=== PATIENT | female | born 1945 | race Caucasian/White ===

== ENCOUNTER 2017-11-16 08:33 | Inpatient (IN) | payer MEDICARE, MEDICAID ==
[~2017-11-16] VITALS: Ht 157.5 cm; Wt 67.4 kg
[2017-11-16] MEDS ORDERED: SODIUM CHLORIDE 0.9% 1,000ML IVBOLUS ONE (09:00)
[2017-11-16] MEDS ORDERED: ONDANSETRON 2MG/ML, 2ML IVPush ONE (09:00)
[2017-11-16] MEDS ORDERED: ONDANSETRON 2MG/ML, 2ML ONE (09:09)
[2017-11-16 09:14] LABS: PH, VENOUS 7.361 pH (7.320-7.420)
[2017-11-16 09:19] LABS: MEAN CORPUSCULAR HEMOGLOBIN 30.6 pg (27.0-34.8); MEAN CORPUSCULAR HGB CONC 34.3 g/dL (32.4-35.8); MEAN CORPUSCULAR VOLUME 89.2 fL (80-100); MEAN PLATELET VOLUME 7.5 fL (7.4-10.4); O2 FLOW ROOM AIR L/min; PLATELET COUNT 327 x10^3/uL (130-400); RED BLOOD COUNT 4.46 x10^6/uL (3.82-5.3); RED CELL DISTRIBUTION WIDTH 13.2 % (9.6-15.2)
[2017-11-16 09:29] LABS: ALANINE AMINOTRANSFERASE 25 U/L (12-78); ALBUMIN 3.3 g/dL (3.4-5.0); ANION GAP 11 mmol/L (5-15); CALCIUM 8.5 mg/dL (8.5-10.1); CHLORIDE 102 mmol/L (98-107); CREATININE 1.34 mg/dL (0.55-1.02)
[2017-11-16] MEDS ORDERED: PIPERACILLIN/TAZO/PMX 4.5GM 100 ML IV ONE (09:30)
[2017-11-16 09:31] LABS: ALKALINE PHOSPHATASE 104 U/L (45-117); BILIRUBIN,TOTAL 0.6 mg/dL (0.2-1.0); TOTAL PROTEIN 7.8 g/dL (6.4-8.2)
[2017-11-16 09:34] LABS: TROPONIN I < 0.015 ng/mL (0.000-0.045)
[2017-11-16 09:45] LABS: ACETONE, SERUM Negative (Negative)
[2017-11-16] MEDS ORDERED: NIAC500C3 PO (09:47)
[2017-11-16] MEDS ORDERED: SIMV40TA3 PO (09:47)
[2017-11-16] MEDS ORDERED: LINA5TAB PO (09:47)
[2017-11-16] MEDS ORDERED: METF500T4 PO (09:47)
[2017-11-16] MEDS ORDERED: METO50TA82 PO (09:47)
[2017-11-16] MEDS ORDERED: LORA10TA62 PO (09:47)
[2017-11-16 09:48] LABS: MD YES
[2017-11-16 09:53] LABS: <RBC MORPHOLOGY> NORMAL; BANDS%(MANUAL) 8 % (0-7); LYMPH#(MANUAL) 1.58 x10^3/uL (1-3.4); LYMPHS% (MANUAL) 6 % (22-44); MONOS#(MANUAL) 1.84 x10^3/uL (0.3-2.7); MONOS% (MANUAL) 7 % (2-9); SEG#(MANUAL) 20.78 x10^3/uL (1.8-6.8); SEGS% (MANUAL) 79 % (42-75)
[2017-11-16 09:54] LABS: <PLATELET ESTIMATE> ADEQUATE; <PLT MORPHOLOGY> NORMAL PLT MORPH
[2017-11-16 10:03] LABS: MICROSCOPIC NOT IND
[2017-11-16 10:36] LABS: CULTURE INDICATED? NO
[2017-11-16 12:26] LABS: TROPONIN I < 0.015 ng/mL (0.000-0.045)
[2017-11-16] MEDS ORDERED: DEXTROSE 4 GM TAB.CHEW PO PRN (12:30)
[2017-11-16] MEDS ORDERED: LABETALOL 5MG/ML, 20ML IVPush PRN (12:30)
[2017-11-16] MEDS ORDERED: morphine SULFATE 10 MG/ML, 1ML IVPush PRN (12:30)
[2017-11-16] MEDS ORDERED: ACETAMINOPHEN 325 MG TABLET PO PRN (12:30)
[2017-11-16] MEDS ORDERED: POLYETHYLENE GLYCOL 17 GM PACKET PO PRN (12:30)
[2017-11-16] MEDS ORDERED: TEMAZEPAM 15 MG CAPSULE PO PRN (12:30)
[2017-11-16] MEDS ORDERED: ONDANSETRON 2MG/ML, 2ML IVPush PRN (12:30)
[2017-11-16] MEDS ORDERED: DEXTROSE 50%, 50ML SYRINGE IVPush PRN (12:30)
[2017-11-16] MEDS ORDERED: GLUCAGON 1 MG IM PRN (12:30)
[2017-11-16] MEDS: INSULIN LISPRO 100 UNITS/ML, PEN SQ-INSULIN SCH ×3 (12:30→20:58)
[2017-11-16] MEDS ORDERED: ONDANSETRON ODT 4 MG PO PRN (12:30)
[2017-11-16] MEDS ORDERED: MAGNESIUM SULFATE PMX 4GM/100M 100 ML IV ONE (13:00)
[2017-11-16 13:04] LABS: HEMOGLOBIN A1C 7.6 % (4.2-6.3)
[2017-11-16 13:55] VITALS: BP 161/65
[2017-11-16] MEDS: METOPROLOL TARTRATE 50 MG TABLET PO SCH (14:51)
[2017-11-16] MEDS: NEUTRA PHOS K 250 MG TABLET PO SCH ×3 (14:51→20:57)
[2017-11-16] MEDS: NS + 20MEQ KCL 1,000 ML IV SCH (14:57)
[2017-11-16] MEDS ORDERED: PIPERACILLIN/TAZO/PMX 3.375GM 50 ML IV SCH (16:00)
[2017-11-16] MEDS: HEPARIN 5,000 UNITS/ML, 1ML SQ SCH ×2 (16:00→20:58)
[2017-11-16] MEDS ORDERED: PIPERACILLIN/TAZO/PMX 4.5GM 100 ML IV SCH (16:00)
[2017-11-16 16:16] LABS: RAPID INFLUENZA A Negative (Negative); RAPID INFLUENZA B Negative (Negative)
[2017-11-16 18:16] LABS: TROPONIN I < 0.015 ng/mL (0.000-0.045)
[2017-11-16 20:00] VITALS: BP 110/61
[2017-11-16] MEDS: MAGNESIUM OXIDE 400 MG TABLET PO SCH (20:57)
[2017-11-16] MEDS: SIMVASTATIN 40 MG TABLET PO SCH (20:57)
[2017-11-16] MEDS: PIPERACILLIN/TAZO 3.375 GM in DEXTROSE 5% 50 ML IV SCH (20:58)
[2017-11-16] MEDS: SODIUM CHLORIDE FLUSH 10ML SYR IVF SCH (20:59)
[2017-11-16] MEDS: GUAIFENESIN/DM 200-20MG, 10ML UDC PO PRN (21:24)
[2017-11-16 23:50] LABS: TROPONIN I < 0.015 ng/mL (0.000-0.045)
[2017-11-17 00:11] VITALS: BP 144/62
[2017-11-17] MEDS: NS + 20MEQ KCL 1,000 ML IV SCH (01:48)
[2017-11-17] MEDS: PIPERACILLIN/TAZO 3.375 GM in DEXTROSE 5% 50 ML IV SCH ×4 (04:03→21:33)
[2017-11-17] MEDS: HEPARIN 5,000 UNITS/ML, 1ML SQ SCH ×3 (05:35→21:25)
[2017-11-17 05:55] LABS: ALANINE AMINOTRANSFERASE 18 U/L (12-78); ALBUMIN 2.6 g/dL (3.4-5.0); ANION GAP 7 mmol/L (5-15); CALCIUM 7.5 mg/dL (8.5-10.1); CHLORIDE 109 mmol/L (98-107); CREATININE 1.21 mg/dL (0.55-1.02)
[2017-11-17 05:58] LABS: ALKALINE PHOSPHATASE 84 U/L (45-117); BILIRUBIN,TOTAL 0.9 mg/dL (0.2-1.0); MEAN CORPUSCULAR HGB CONC 34.7 g/dL (32.4-35.8); MEAN CORPUSCULAR VOLUME 89.4 fL (80-100); MEAN PLATELET VOLUME 7.9 fL (7.4-10.4); PLATELET COUNT 289 x10^3/uL (130-400); RED BLOOD COUNT 3.79 x10^6/uL (3.82-5.3); RED CELL DISTRIBUTION WIDTH 12.7 % (9.6-15.2); TOTAL PROTEIN 6.9 g/dL (6.4-8.2)
[2017-11-17 06:27] LABS: MD YES
[2017-11-17 06:29] LABS: BAND#(MANUAL) 2.28 x10^3/uL; BANDS%(MANUAL) 7 % (0-7); LYMPH#(MANUAL) 3.58 x10^3/uL (1-3.4); LYMPHS% (MANUAL) 11 % (22-44); MONOS#(MANUAL) 2.28 x10^3/uL (0.3-2.7); MONOS% (MANUAL) 7 % (2-9); SEG#(MANUAL) 24.38 x10^3/uL (1.8-6.8); SEGS% (MANUAL) 75 % (42-75)
[2017-11-17 06:30] LABS: POLYCHROMASIA 1+
[2017-11-17 06:31] LABS: <PLATELET ESTIMATE> ADEQUATE; <PLT MORPHOLOGY> NORMAL PLT MORPH
[2017-11-17 07:00] VITALS: BP 115/70
[2017-11-17] MEDS: MAGNESIUM OXIDE 400 MG TABLET PO SCH ×2 (08:36→21:25)
[2017-11-17] MEDS: METOPROLOL TARTRATE 50 MG TABLET PO SCH (08:36)
[2017-11-17] MEDS: INSULIN LISPRO 100 UNITS/ML, PEN SQ-INSULIN SCH ×4 (08:36→21:32)
[2017-11-17] MEDS: NEUTRA PHOS K 250 MG TABLET PO SCH ×3 (08:36→21:25)
[2017-11-17] MEDS: SODIUM CHLORIDE FLUSH 10ML SYR IVF SCH ×2 (08:48→21:24)
[2017-11-17] MEDS: GUAIFENESIN/DM 200-20MG, 10ML UDC PO PRN ×3 (11:08→21:31)
[2017-11-17 13:20] VITALS: BP 112/69
[2017-11-17 20:15] VITALS: BP 128/69
[2017-11-17] MEDS: SIMVASTATIN 40 MG TABLET PO SCH (21:25)
[2017-11-18 02:56] VITALS: BP 126/71
[2017-11-18] MEDS: GUAIFENESIN/DM 200-20MG, 10ML UDC PO PRN (03:37)
[2017-11-18] MEDS: PIPERACILLIN/TAZO 3.375 GM in DEXTROSE 5% 50 ML IV SCH ×2 (03:46→08:56)
[2017-11-18 05:48] LABS: CHLORIDE 108 mmol/L (98-107)
[2017-11-18 05:55] LABS: MEAN CORPUSCULAR HEMOGLOBIN 30.6 pg (27.0-34.8); MEAN CORPUSCULAR VOLUME 90.2 fL (80-100); MEAN PLATELET VOLUME 7.9 fL (7.4-10.4); PLATELET COUNT 254 x10^3/uL (130-400); RED BLOOD COUNT 3.62 x10^6/uL (3.82-5.3); RED CELL DISTRIBUTION WIDTH 13.1 % (9.6-15.2)
[2017-11-18 06:01] LABS: ALANINE AMINOTRANSFERASE 17 U/L (12-78); ALBUMIN 2.2 g/dL (3.4-5.0); ALKALINE PHOSPHATASE 90 U/L (45-117); ANION GAP 8 mmol/L (5-15); CALCIUM 7.3 mg/dL (8.5-10.1); CREATININE 1.06 mg/dL (0.55-1.02); TOTAL PROTEIN 6.8 g/dL (6.4-8.2)
[2017-11-18] MEDS: HEPARIN 5,000 UNITS/ML, 1ML SQ SCH (06:16)
[2017-11-18 06:29] LABS: BASOPHILS # (AUTO) 0.04 x10^3/uL (0-0.1); BASOPHILS % (AUTO) 0 % (0-1); EOSINOPHILS % (AUTO) 0 % (1-7); LYMPHOCYTES # (AUTO) 2.59 x10^3/uL (1-3.4); LYMPHOCYTES % (AUTO) 12 % (22-44); MD SCAN; MONOCYTES # (AUTO) 1.85 x10^3/uL (0.2-0.8); MONOCYTES % (AUTO) 8 % (2-9); NEUTROPHILS # (AUTO) 17.95 x10^3/uL (1.8-6.8); NEUTROPHILS % (AUTO) 80 % (42-75)
[2017-11-18 08:00] VITALS: BP 164/78
[2017-11-18] MEDS: SODIUM CHLORIDE FLUSH 10ML SYR IVF SCH (08:56)
[2017-11-18] MEDS: NEUTRA PHOS K 250 MG TABLET PO SCH (08:56)
[2017-11-18] MEDS: METOPROLOL TARTRATE 50 MG TABLET PO SCH (08:56)
[2017-11-18] MEDS: MAGNESIUM OXIDE 400 MG TABLET PO SCH (08:56)
[2017-11-18] MEDS: INSULIN LISPRO 100 UNITS/ML, PEN SQ-INSULIN SCH ×2 (09:05→13:04)
[2017-11-18] MEDS ORDERED: BENZ100C PO (09:10)
[2017-11-18] MEDS ORDERED: AZIT250T PO (09:10)
[2017-11-18] MEDS ORDERED: GUAI5SYR PO (09:10)
[2017-11-18] MEDS ORDERED: CEFD300C37 PO (09:10)
== END 2017-11-18 15:55 | disposition home health service (06) | DRG 871 ==
LOC: ED 09:14 → EDIP 10:56 → 4WST 13:00
PROVIDERS: ADMIT Internal Medicine; ATTEND Internal Medicine
PROC: 0T9B70Z Drainage of Bladder with Drainage Device, Via Natural or Artificial Opening (ICD-10-PCS; principal; 2017-11-16)
DX: A41.9 Sepsis, unspecified organism (principal); J18.1 Lobar pneumonia, unspecified organism; E43 Unspecified severe protein-calorie malnutrition; E87.2 Acidosis; E11.65 Type 2 diabetes mellitus with hyperglycemia; R65.20 Severe sepsis without septic shock; E86.0 Dehydration; E78.5 Hyperlipidemia, unspecified; E83.39 Other disorders of phosphorus metabolism; E83.42 Hypomagnesemia; I10 Essential (primary) hypertension; N28.9 Disorder of kidney and ureter, unspecified; Z87.891 Personal history of nicotine dependence
CPT/HCPCS: 36415; 71045; 71250; 80053; 81003; 82010; 82550; 82803; 82962; 83036; 83605; 83690; 83735; 83930; 84100; 84145; 84484; 85025; 87040; 87400; 93005; 93306; 94640; 96365; 96375; J1644; J2405; J2543; J3480; J1815; J3475; J7030

== ENCOUNTER 2017-11-23 23:00 | Inpatient (IN) | payer MEDICARE, MEDICAID ==
[~2017-11-23] VITALS: Ht 157.5 cm; Wt 66.5 kg
[~2017-11-23 23:00] MED LIST: AZIT250T PO; BENZ100C PO; CEFD300C37 PO; GUAI5SYR PO; LINA5TAB PO; LORA10TA62 PO; METF500T4 PO; METO50TA82 PO; NIAC500C3 PO; SIMV40TA3 PO
[2017-11-23] MEDS ORDERED: ASPIRIN 81 MG TABLET CHEW PO ONE (23:30)
[2017-11-23 23:52] LABS: ALANINE AMINOTRANSFERASE 32 U/L (12-78); ALBUMIN 2.4 g/dL (3.4-5.0); ANION GAP 10 mmol/L (5-15); CALCIUM 8.3 mg/dL (8.5-10.1); CHLORIDE 106 mmol/L (98-107); CREATININE 0.95 mg/dL (0.55-1.02)
[2017-11-23 23:56] LABS: ALKALINE PHOSPHATASE 111 U/L (45-117); BILIRUBIN,TOTAL 0.2 mg/dL (0.2-1.0); TOTAL PROTEIN 8.2 g/dL (6.4-8.2); TROPONIN I < 0.015 ng/mL (0.000-0.045)
[2017-11-23 23:59] LABS: BASOPHILS # (AUTO) 0.03 x10^3/uL (0-0.1); BASOPHILS % (AUTO) 0 % (0-1); EOSINOPHILS % (AUTO) 3 % (1-7); LYMPHOCYTES # (AUTO) 2.39 x10^3/uL (1-3.4); LYMPHOCYTES % (AUTO) 18 % (22-44); MD NO; MEAN CORPUSCULAR HEMOGLOBIN 30.3 pg (27.0-34.8); MEAN CORPUSCULAR HGB CONC 34.3 g/dL (32.4-35.8); MEAN CORPUSCULAR VOLUME 88.4 fL (80-100); MEAN PLATELET VOLUME 7.5 fL (7.4-10.4); MONOCYTES # (AUTO) 1.34 x10^3/uL (0.2-0.8); MONOCYTES % (AUTO) 10 % (2-9); NEUTROPHILS # (AUTO) 9.52 x10^3/uL (1.8-6.8); NEUTROPHILS % (AUTO) 70 % (42-75); PLATELET COUNT 477 x10^3/uL (130-400); RED BLOOD COUNT 4.03 x10^6/uL (3.82-5.3); RED CELL DISTRIBUTION WIDTH 12.9 % (9.6-15.2)
[2017-11-24] VITALS (8 sets, daily range): BP systolic 129–161; BP diastolic 59–73
[2017-11-24] MEDS ORDERED: ASPIRIN 81 MG TABLET CHEW ONE (00:01)
[2017-11-24 00:05] LABS: INTERNATIONAL NORMALIZED RATIO 0.99 (0.93-1.1); PROTHROMBIN TIME 10.3 Seconds (9.6-11.5)
[2017-11-24] MEDS ORDERED: ONDANSETRON 2MG/ML, 2ML IVPush PRN (01:30)
[2017-11-24] MEDS ORDERED: ONDANSETRON ODT 4 MG PO PRN (01:30)
[2017-11-24] MEDS ORDERED: ACETAMINOPHEN 325 MG TABLET PO PRN (01:30)
[2017-11-24] MEDS ORDERED: DEXTROSE 4 GM TAB.CHEW PO PRN (01:30)
[2017-11-24] MEDS ORDERED: DEXTROSE 50%, 50ML SYRINGE IVPush PRN (01:30)
[2017-11-24] MEDS ORDERED: MECLIZINE 12.5 MG TABLET PO PRN (01:30)
[2017-11-24] MEDS ORDERED: GLUCAGON 1 MG IM PRN (01:30)
[2017-11-24] MEDS ORDERED: GUAIFENESIN/DM 100-10MG, 5ML UDC PO PRN (01:30)
[2017-11-24] MEDS: INSULIN LISPRO 100 UNITS/ML, PEN SQ-INSULIN SCH ×4 (07:00→20:47)
[2017-11-24 09:20] LABS: CLOSTRIDIUM DIFFICILE ANTIGEN NEGATIVE; CLOSTRIDIUM DIFFICILE TOXIN NEGATIVE (Negative)
[2017-11-24] MEDS: CEFDINIR 300 MG CAPSULE PO SCH ×2 (09:32→20:46)
[2017-11-24] MEDS: AZITHROMYCIN 250 MG TABLET PO SCH (09:32)
[2017-11-24] MEDS: CHOLESTYRAMINE LIGHT 4GM PACKET PO SCH ×3 (09:32→17:00)
[2017-11-24] MEDS: METOPROLOL TARTRATE 50 MG TABLET PO SCH (09:32)
[2017-11-24] MEDS: BENZONATATE 100 MG CAPSULE PO SCH ×3 (09:32→20:47)
[2017-11-24] MEDS: SODIUM CHLORIDE FLUSH 10ML SYR IVF SCH ×2 (09:33→20:48)
[2017-11-24] MEDS: SIMVASTATIN 40 MG TABLET PO SCH (20:46)
[2017-11-25] VITALS (7 sets, daily range): BP systolic 126–155; BP diastolic 66–82
[2017-11-25] MEDS: INSULIN LISPRO 100 UNITS/ML, PEN SQ-INSULIN SCH ×4 (07:00→20:19)
[2017-11-25] MEDS: CHOLESTYRAMINE LIGHT 4GM PACKET PO SCH ×3 (08:00→17:13)
[2017-11-25 08:44] LABS: TROPONIN I < 0.015 ng/mL (0.000-0.045)
[2017-11-25] MEDS: BENZONATATE 100 MG CAPSULE PO SCH ×3 (09:00→20:19)
[2017-11-25] MEDS: CEFDINIR 300 MG CAPSULE PO SCH ×2 (09:00→20:19)
[2017-11-25] MEDS ORDERED: REGADENOSON 0.4 MG/5 ML SYRINGE ONE (10:20)
[2017-11-25] MEDS: SODIUM CHLORIDE FLUSH 10ML SYR IVF SCH ×2 (13:05→20:19)
[2017-11-25] MEDS: AZITHROMYCIN 250 MG TABLET PO SCH (13:05)
[2017-11-25] MEDS: METOPROLOL TARTRATE 50 MG TABLET PO SCH (13:05)
[2017-11-25] MEDS: SIMVASTATIN 40 MG TABLET PO SCH (20:19)
[2017-11-26 01:01] VITALS: BP 121/70
[2017-11-26] MEDS: INSULIN LISPRO 100 UNITS/ML, PEN SQ-INSULIN SCH ×2 (07:00→11:00)
[2017-11-26] MEDS: CHOLESTYRAMINE LIGHT 4GM PACKET PO SCH ×2 (07:32→11:05)
[2017-11-26 08:29] VITALS: BP 145/52
[2017-11-26] MEDS: METOPROLOL TARTRATE 50 MG TABLET PO SCH (09:08)
[2017-11-26] MEDS: AZITHROMYCIN 250 MG TABLET PO SCH (09:08)
[2017-11-26] MEDS: CEFDINIR 300 MG CAPSULE PO SCH (09:09)
[2017-11-26] MEDS: SODIUM CHLORIDE FLUSH 10ML SYR IVF SCH (09:09)
[2017-11-26] MEDS: BENZONATATE 100 MG CAPSULE PO SCH (09:09)
== END 2017-11-26 13:08 | disposition home or self-care (01) | DRG 393 ==
LOC: ED 11-24 00:51 → EDIP 11-24 01:39 → 4EST 11-24 02:35 → DCLOUNGE 11-26 12:55
PROVIDERS: ADMIT Internal Medicine; ATTEND Internal Medicine
DX: K52.1 Toxic gastroenteritis and colitis (principal); J18.1 Lobar pneumonia, unspecified organism; E11.9 Type 2 diabetes mellitus without complications; I10 Essential (primary) hypertension; E78.5 Hyperlipidemia, unspecified; F41.0 Panic disorder [episodic paroxysmal anxiety]; Z87.01 Personal history of pneumonia (recurrent); Z82.5 Family history of asthma and other chronic lower respiratory diseases; Z83.3 Family history of diabetes mellitus; Z82.49 Family history of ischemic heart disease and other diseases of the circulatory system; T36.95XA Adverse effect of unspecified systemic antibiotic, initial encounter; Y92.89 Other specified places as the place of occurrence of the external cause
CPT/HCPCS: 36415; 70450; 71045; 78452; 80053; 82962; 83735; 84100; 84484; 85025; 85610; 85730; 87324; 93005; 93017; 93880; 99285; J2785; 92523-GN; A9502; C9898; J1815

== ENCOUNTER 2018-05-08 10:04 | Emergency (ER) | payer MEDICARE, MEDICAID ==
[~2018-05-08] VITALS: Ht 157.5 cm; Wt 68.0 kg
[~2018-05-08 10:04] MED LIST changes: +CALCIUM TABLET PO; +CHOL100015 PO; +METF500T17 PO; -METF500T4 PO; +MULT-717 PO
[2018-05-08] MEDS ORDERED: SODIUM CHLORIDE 0.9% 1,000ML IVBOLUS ONE (10:30)
[2018-05-08 10:33] LABS: BASOPHILS # (AUTO) 0.02 x10^3/uL (0-0.1); BASOPHILS % (AUTO) 0 % (0-1); EOSINOPHILS # (AUTO) 0.38 x10^3/uL (0-0.4); EOSINOPHILS % (AUTO) 4 % (1-7); LYMPHOCYTES % (AUTO) 30 % (22-44); MD NO; MEAN CORPUSCULAR HEMOGLOBIN 29.7 pg (27.0-34.8); MEAN CORPUSCULAR HGB CONC 34.4 g/dL (32.4-35.8); MEAN CORPUSCULAR VOLUME 86.3 fL (80-100); MEAN PLATELET VOLUME 7.9 fL (7.4-10.4); MONOCYTES # (AUTO) 1.01 x10^3/uL (0.2-0.8); MONOCYTES % (AUTO) 10 % (2-9); NEUTROPHILS # (AUTO) 5.84 x10^3/uL (1.8-6.8); NEUTROPHILS % (AUTO) 56 % (42-75); PLATELET COUNT 311 x10^3/uL (130-400); RED BLOOD COUNT 4.73 x10^6/uL (3.82-5.3)
[2018-05-08 10:42] LABS: ALBUMIN 3.5 g/dL (3.4-5.0); ANION GAP 6 mmol/L (5-15); CALCIUM 8.8 mg/dL (8.5-10.1); CHLORIDE 108 mmol/L (98-107); CREATININE 1.32 mg/dL (0.55-1.02)
[2018-05-08 10:45] LABS: TROPONIN I < 0.015 ng/mL (0.000-0.045)
[2018-05-08 11:06] LABS: MICROSCOPIC INDICATED
[2018-05-08 11:08] LABS: CULTURE INDICATED? YES
[2018-05-08 12:42] LABS: CLOSTRIDIUM DIFFICILE ANTIGEN NEGATIVE; CLOSTRIDIUM DIFFICILE TOXIN NEGATIVE (Negative)
[2018-05-08 13:01] VITALS: BP 128/52
== END 2018-05-08 13:38 | disposition home or self-care (01) ==
LOC: ED 10:58
DX: R42 Dizziness and giddiness (principal); R19.7 Diarrhea, unspecified; E86.0 Dehydration; E11.9 Type 2 diabetes mellitus without complications; I95.1 Orthostatic hypotension
CPT/HCPCS: 36415; 71045; 80048; 81001; 82040; 84484; 85025; 87086; 87106; 87186; 87324; 89055; 93005; 96360; 99285; J7030

== ENCOUNTER 2019-04-13 10:21 | Emergency (ER) | payer MEDICARE, MEDICAID ==
[~2019-04-13] VITALS: Ht 157.5 cm; Wt 68.0 kg
[2019-04-13 10:35] VITALS: BP 154/48
== END 2019-04-13 12:19 | disposition home or self-care (01) ==
LOC: ED 11:09
DX: R06.02 Shortness of breath (principal); R05 Cough; Z77.098 Contact with and (suspected) exposure to other hazardous, chiefly nonmedicinal, chemicals; I10 Essential (primary) hypertension; E11.65 Type 2 diabetes mellitus with hyperglycemia; E78.5 Hyperlipidemia, unspecified
CPT/HCPCS: 99283

== ENCOUNTER 2019-11-07 00:37 | Emergency (ER) | payer MEDICARE, MEDICAID ==
[~2019-11-07] VITALS: Ht 157.5 cm; Wt 70.0 kg
[~2019-11-07 00:37] MED LIST changes: +JARDIANCE PO; +LISINOPRIL PO; +SIMV40TA20 PO; -SIMV40TA3 PO
--- NOTE | 2019-11-07 01:16 | NUR ---
Pt presents to room stating that she developed sudden onset dizziness tonight when she stood up to turn her TV off. Pt states the dizziness has improved some since it first developed.
[2019-11-07 01:34] LABS: BASOPHILS # (AUTO) 0.04 x10^3/uL (0-0.1); BASOPHILS % (AUTO) 0 % (0-1); EOSINOPHILS # (AUTO) 0.21 x10^3/uL (0-0.4); EOSINOPHILS % (AUTO) 2 % (1-7); LYMPHOCYTES # (AUTO) 2.98 x10^3/uL (1-3.4); LYMPHOCYTES % (AUTO) 28 % (22-44); MD NO; MEAN CORPUSCULAR HEMOGLOBIN 30.1 pg (27.0-34.8); MEAN CORPUSCULAR HGB CONC 33.9 g/dL (32.4-35.8); MEAN CORPUSCULAR VOLUME 88.9 fL (80-100); MEAN PLATELET VOLUME 7.8 fL (7.4-10.4); MONOCYTES # (AUTO) 1.15 x10^3/uL (0.2-0.8); MONOCYTES % (AUTO) 11 % (2-9); NEUTROPHILS % (AUTO) 59 % (42-75); PLATELET COUNT 312 x10^3/uL (130-400); RED CELL DISTRIBUTION WIDTH 14.1 % (9.6-15.2)
[2019-11-07 01:46] LABS: ANION GAP 6 mmol/L (5-15); CALCIUM 8.7 mg/dL (8.5-10.1); CHLORIDE 108 mmol/L (98-107)
[2019-11-07 01:51] LABS: CREATININE 1.18 mg/dL (0.55-1.02); TROPONIN I < 0.015 ng/mL (0.000-0.045)
--- NOTE | 2019-11-07 02:13 | NUR ---
Pt up to bedside commode. Pt denies worsening of dizziness with position changes.
[2019-11-07] MEDS ORDERED: MECLIZINE CHEWABLE 25 MG TAB ONE (02:28)
[2019-11-07] MEDS ORDERED: MECLIZINE CHEWABLE 25 MG TAB PO ONE (02:30)
[2019-11-07 03:02] VITALS: BP 150/54
[2019-11-08] MEDS ORDERED: METO-95 PO (11:55)
[2019-11-08] MEDS ORDERED: LORA-247 PO (11:55)
[2019-11-08] MEDS ORDERED: NIAC500T9 PO (11:55)
== END 2019-11-07 03:08 | disposition home or self-care (01) ==
LOC: ED 02:30
DX: R42 Dizziness and giddiness (principal); I10 Essential (primary) hypertension; E78.5 Hyperlipidemia, unspecified; M19.90 Unspecified osteoarthritis, unspecified site; E11.65 Type 2 diabetes mellitus with hyperglycemia
CPT/HCPCS: 36415; 80048; 82040; 84484; 85025; 93005; 99284

== ENCOUNTER 2019-11-07 10:52 | Inpatient (IN) | payer MEDICARE, MEDICAID ==
[~2019-11-07] VITALS: Ht 157.5 cm; Wt 74.2 kg
--- NOTE | 2019-11-07 11:03 | NUR ---
PT BIB BY [facility] FOR A GLF. FELL ON HER LEFT SHOULDER AND IS UNABLE TO MOVE IT FROM THE PAIN. GOT 100 OF [employer]. DENIES LOC. DENIES HITTING HER HEAD OR HEADACHE. PT IS RESTING IN [facility]. RESIDENT IS BEDSIDE. BLANKET PROVIDED.
[2019-11-07] MEDS ORDERED: HYDROcodone/APAP 5/325 TABLET ONE (12:00)
[2019-11-07] MEDS ORDERED: HYDROcodone/APAP 5/325 TABLET PO ONE (12:00)
--- NOTE | 2019-11-07 12:30 | NUR ---
PT TO BEDSIDE COMMODE AT THIS TIME.
[2019-11-07 13:03] LABS: MEAN CORPUSCULAR HGB CONC 33.6 g/dL (32.4-35.8); MEAN CORPUSCULAR VOLUME 89.3 fL (80-100); MEAN PLATELET VOLUME 7.6 fL (7.4-10.4); PLATELET COUNT 373 x10^3/uL (130-400); RED BLOOD COUNT 4.79 x10^6/uL (3.82-5.3)
[2019-11-07] MEDS ORDERED: MORPHINE SULFATE 4 MG/ML, 1ML ONE (13:10)
[2019-11-07 13:16] LABS: ALBUMIN 3.2 g/dL (3.4-5.0); ANION GAP 6 mmol/L (5-15); CALCIUM 8.9 mg/dL (8.5-10.1); CHLORIDE 109 mmol/L (98-107)
[2019-11-07 13:19] LABS: ALANINE AMINOTRANSFERASE 24 U/L (12-78); ALKALINE PHOSPHATASE 118 U/L (45-117); BILIRUBIN,TOTAL 0.4 mg/dL (0.2-1.0); CREATININE 1.14 mg/dL (0.55-1.02); TOTAL PROTEIN 7.8 g/dL (6.4-8.2)
[2019-11-07] MEDS ORDERED: morphine SULFATE 10 MG/ML, 1ML IVPush ONE (13:30)
[2019-11-07 13:31] LABS: BASOPHILS # (AUTO) 0.07 x10^3/uL (0-0.1); BASOPHILS % (AUTO) 1 % (0-1); EOSINOPHILS # (AUTO) 0.04 x10^3/uL (0-0.4); EOSINOPHILS % (AUTO) 0 % (1-7); LYMPHOCYTES # (AUTO) 1.87 x10^3/uL (1-3.4); LYMPHOCYTES % (AUTO) 13 % (22-44); MD SCAN; MONOCYTES % (AUTO) 7 % (2-9); NEUTROPHILS # (AUTO) 11.66 x10^3/uL (1.8-6.8); NEUTROPHILS % (AUTO) 79 % (42-75)
--- NOTE | 2019-11-07 13:42 | NUR ---
PT RESTING IN [facility]. MEDICATED PER OCT. VSS. TBADM
--- NOTE | 2019-11-07 14:21 | NUR ---
PT RESTING IN GURNEY. ARM HAS BEEN IMMOBILIZED. NAD.
[2019-11-07] MEDS ORDERED: GLUCAGON 1 MG IM PRN ×2 (14:30)
[2019-11-07] MEDS ORDERED: GABAPENTIN 300 MG CAPSULE PO PRN (14:30)
[2019-11-07] MEDS ORDERED: hydrALAzine 20 MG/ML, 1ML IVPush PRN (14:30)
[2019-11-07] MEDS ORDERED: ACETAMINOPHEN 325 MG TABLET PO PRN (14:30)
[2019-11-07] MEDS ORDERED: DEXTROSE 50%, 50ML SYRINGE IVPush PRN ×2 (14:30)
[2019-11-07] MEDS ORDERED: ONDANSETRON ODT 4 MG PO PRN (14:30)
[2019-11-07] MEDS ORDERED: BACLOFEN 10 MG TABLET PO PRN (14:30)
[2019-11-07] MEDS ORDERED: DEXTROSE 4 GM TAB.CHEW PO PRN ×2 (14:30)
[2019-11-07] MEDS ORDERED: morphine SULFATE 10 MG/ML, 1ML IVPush PRN (14:30)
[2019-11-07] MEDS ORDERED: ONDANSETRON 2MG/ML, 2ML IVPush PRN (14:30)
[2019-11-07] MEDS: NS + 20MEQ KCL 1,000 ML IV SCH (17:45)
[2019-11-07] MEDS: OXYcodone IR 5MG TABLET PO PRN (17:45)
[2019-11-07 18:27] LABS: MICROSCOPIC AUTO
[2019-11-07 18:34] LABS: CULTURE INDICATED? YES
[2019-11-07 20:13] VITALS: BP 127/68
[2019-11-07] MEDS: SIMVASTATIN 40 MG TABLET PO SCH (20:15)
[2019-11-07] MEDS: ENOXAPARIN 40 MG/0.4 ML SQ SCH (20:15)
[2019-11-07] MEDS: SODIUM CHLORIDE FLUSH 10ML SYR IVF SCH ×2 (20:16)
[2019-11-07 20:40] LABS: TROPONIN I < 0.015 ng/mL (0.000-0.045)
[2019-11-08 01:00] VITALS: BP 119/76
[2019-11-08] MEDS: OXYcodone IR 5MG TABLET PO PRN ×5 (02:10→23:40)
[2019-11-08 02:20] LABS: BASOPHILS # (AUTO) 0.03 x10^3/uL (0-0.1); BASOPHILS % (AUTO) 0 % (0-1); EOSINOPHILS # (AUTO) 0.02 x10^3/uL (0-0.4); EOSINOPHILS % (AUTO) 0 % (1-7); LYMPHOCYTES % (AUTO) 15 % (22-44); MD NO; MEAN CORPUSCULAR HGB CONC 33.6 g/dL (32.4-35.8); MEAN CORPUSCULAR VOLUME 89.3 fL (80-100); MEAN PLATELET VOLUME 7.6 fL (7.4-10.4); MONOCYTES # (AUTO) 1.33 x10^3/uL (0.2-0.8); MONOCYTES % (AUTO) 11 % (2-9); NEUTROPHILS # (AUTO) 8.87 x10^3/uL (1.8-6.8); NEUTROPHILS % (AUTO) 74 % (42-75); PLATELET COUNT 292 x10^3/uL (130-400); RED BLOOD COUNT 4.37 x10^6/uL (3.82-5.3); RED CELL DISTRIBUTION WIDTH 14.6 % (9.6-15.2)
[2019-11-08 02:33] LABS: ANION GAP 23 mmol/L (5-15); CALCIUM 7.8 mg/dL (8.5-10.1); CHLORIDE 100 mmol/L (98-107)
[2019-11-08 02:44] LABS: CREATININE 1.09 mg/dL (0.55-1.02)
[2019-11-08 02:45] LABS: TROPONIN I < 0.015 ng/mL (0.000-0.045)
[2019-11-08] MEDS: NS + 20MEQ KCL 1,000 ML IV SCH ×2 (06:16→20:13)
[2019-11-08 08:07] VITALS: BP 168/67
[2019-11-08] MEDS: SODIUM CHLORIDE FLUSH 10ML SYR IVF SCH ×4 (08:09→20:16)
[2019-11-08] MEDS: LISINOPRIL 20 MG TABLET PO SCH (08:10)
[2019-11-08] MEDS ORDERED: METO-95 PO (11:55)
[2019-11-08] MEDS ORDERED: LORA-247 PO (11:55)
[2019-11-08] MEDS ORDERED: NIAC500T9 PO (11:55)
[2019-11-08 15:23] VITALS: BP 113/69
[2019-11-08 20:11] VITALS: BP 130/77
[2019-11-08] MEDS: ENOXAPARIN 40 MG/0.4 ML SQ SCH (20:13)
[2019-11-08] MEDS: NIACIN 500 MG TABLET.ER PO SCH (20:13)
[2019-11-08] MEDS: SIMVASTATIN 40 MG TABLET PO SCH (20:13)
[2019-11-08] MEDS: JARDIANCE 10 MG PO SCH (20:15)
[2019-11-09 03:25] VITALS: BP 143/70
[2019-11-09 05:47] LABS: MEAN CORPUSCULAR HGB CONC 33.6 g/dL (32.4-35.8); MEAN CORPUSCULAR VOLUME 89.3 fL (80-100); MEAN PLATELET VOLUME 7.6 fL (7.4-10.4); PLATELET COUNT 278 x10^3/uL (130-400); RED BLOOD COUNT 3.92 x10^6/uL (3.82-5.3); RED CELL DISTRIBUTION WIDTH 14.7 % (9.6-15.2)
[2019-11-09 05:57] LABS: ALBUMIN 2.6 g/dL (3.4-5.0); ANION GAP 6 mmol/L (5-15); CHLORIDE 113 mmol/L (98-107)
[2019-11-09 06:01] LABS: ALANINE AMINOTRANSFERASE 20 U/L (12-78); ALKALINE PHOSPHATASE 87 U/L (45-117); BILIRUBIN,TOTAL 0.5 mg/dL (0.2-1.0); CREATININE 1.19 mg/dL (0.55-1.02); TOTAL PROTEIN 6.4 g/dL (6.4-8.2)
[2019-11-09 06:18] LABS: BASOPHILS # (AUTO) 0.02 x10^3/uL (0-0.1); BASOPHILS % (AUTO) 0 % (0-1); EOSINOPHILS # (AUTO) 0.11 x10^3/uL (0-0.4); EOSINOPHILS % (AUTO) 1 % (1-7); LYMPHOCYTES # (AUTO) 2.11 x10^3/uL (1-3.4); LYMPHOCYTES % (AUTO) 24 % (22-44); MD SCAN; MONOCYTES % (AUTO) 17 % (2-9); NEUTROPHILS # (AUTO) 5.05 x10^3/uL (1.8-6.8); NEUTROPHILS % (AUTO) 58 % (42-75)
[2019-11-09 06:58] VITALS: BP 162/75
[2019-11-09] MEDS: LISINOPRIL 20 MG TABLET PO SCH (07:48)
[2019-11-09] MEDS: SODIUM CHLORIDE FLUSH 10ML SYR IVF SCH ×4 (07:49→20:39)
[2019-11-09] MEDS: OXYcodone IR 5MG TABLET PO PRN ×4 (07:49→22:08)
[2019-11-09] MEDS: NS + 20MEQ KCL 1,000 ML IV SCH ×2 (09:12→22:16)
[2019-11-09] MEDS: MAGNESIUM HYDROXIDE 8%, 30ML UDC PO SCH ×2 (10:33→19:57)
[2019-11-09 14:30] VITALS: BP 124/53
[2019-11-09] MEDS: NIACIN 500 MG TABLET.ER PO SCH (19:57)
[2019-11-09] MEDS: ENOXAPARIN 40 MG/0.4 ML SQ SCH (19:57)
[2019-11-09] MEDS: SIMVASTATIN 40 MG TABLET PO SCH (19:58)
[2019-11-09 20:18] VITALS: BP 132/75
[2019-11-09] MEDS: JARDIANCE 10 MG PO SCH (20:40)
[2019-11-10 01:51] VITALS: BP 138/69
[2019-11-10] MEDS: OXYcodone IR 5MG TABLET PO PRN ×3 (01:54→21:59)
[2019-11-10 02:05] VITALS: BP 145/79
[2019-11-10] MEDS ORDERED: SODIUM CHLORIDE 0.9% 1,000ML IVBOLUS ONE (07:00)
[2019-11-10 07:33] VITALS: BP 119/73
[2019-11-10] MEDS: MULTIVITS,STRESS FORMULA 1 TABLET PO SCH (08:07)
[2019-11-10] MEDS: ASCORBIC ACID 500 MG TABLET PO SCH ×2 (08:07→17:29)
[2019-11-10] MEDS: MAGNESIUM HYDROXIDE 8%, 30ML UDC PO SCH ×2 (08:07→19:57)
[2019-11-10] MEDS: SODIUM CHLORIDE FLUSH 10ML SYR IVF SCH ×4 (08:07→21:59)
[2019-11-10] MEDS: LISINOPRIL 20 MG TABLET PO SCH (08:07)
[2019-11-10] MEDS ORDERED: MAGNESIUM CITRATE 300ML ORAL SOL PO PRN (09:30)
[2019-11-10] MEDS ORDERED: ASCO500T6 PO (09:36)
[2019-11-10] MEDS ORDERED: OXYC5TAB3 PO (09:36)
[2019-11-10] MEDS ORDERED: BISACODYL 10 MG SUPP PR PRN (12:00)
[2019-11-10 12:40] VITALS: BP 100/64
[2019-11-10] MEDS: NS + 20MEQ KCL 1,000 ML IV SCH (12:56)
[2019-11-10] MEDS ORDERED: CHOLECALCIFEROL 400 UNITS/ML ORAL SOL PO SCH (16:30)
[2019-11-10 19:38] VITALS: BP 130/73
[2019-11-10] MEDS: ENOXAPARIN 40 MG/0.4 ML SQ SCH (21:59)
[2019-11-10] MEDS: NIACIN 500 MG TABLET.ER PO SCH (21:59)
[2019-11-10] MEDS: SIMVASTATIN 40 MG TABLET PO SCH (22:00)
[2019-11-10] MEDS: JARDIANCE 10 MG PO SCH (22:03)
[2019-11-11 00:47] VITALS: BP 94/61
[2019-11-11 07:17] VITALS: BP 100/61
[2019-11-11] MEDS: ASCORBIC ACID 500 MG TABLET PO SCH (08:18)
[2019-11-11] MEDS: MULTIVITS,STRESS FORMULA 1 TABLET PO SCH (08:18)
[2019-11-11] MEDS: LISINOPRIL 20 MG TABLET PO SCH (08:18)
[2019-11-11] MEDS: NS + 20MEQ KCL 1,000 ML IV SCH (08:18)
[2019-11-11] MEDS: SODIUM CHLORIDE FLUSH 10ML SYR IVF SCH ×2 (08:19→08:28)
[2019-11-11] MEDS: OXYcodone IR 5MG TABLET PO PRN (08:23)
[2019-11-11] MEDS: MAGNESIUM HYDROXIDE 8%, 30ML UDC PO SCH (08:28)
[2019-11-11 13:04] VITALS: BP 110/64
== END 2019-11-11 14:30 | DRG 563 ==
LOC: ED 13:39 → EDIP 13:40 → SUATTDRO 13:58 → ED 14:12 → 4EST 16:38
PROVIDERS: ADMIT Hospitalist; ATTEND Family Medicine
PROC: 2W39XYZ Immobilization of Left Upper Extremity using Other Device (ICD-10-PCS; principal; 2019-11-07)
DX: S42.212A Unspecified displaced fracture of surgical neck of left humerus, initial encounter for closed fracture (principal); R65.10 Systemic inflammatory response syndrome (SIRS) of non-infectious origin without acute organ dysfunction; N18.3 Chronic kidney disease, stage 3 (moderate); E11.22 Type 2 diabetes mellitus with diabetic chronic kidney disease; E78.5 Hyperlipidemia, unspecified; G89.11 Acute pain due to trauma; I12.9 Hypertensive chronic kidney disease with stage 1 through stage 4 chronic kidney disease, or unspecified chronic kidney disease; W06.XXXA Fall from bed, initial encounter; Y93.89 Activity, other specified; Y92.89 Other specified places as the place of occurrence of the external cause; Y99.8 Other external cause status; Z80.42 Family history of malignant neoplasm of prostate; Z83.2 Family history of diseases of the blood and blood-forming organs and certain disorders involving the immune mechanism
CPT/HCPCS: 36415; 71045; 80048; 80053; 81001; 82962; 84443; 84484; 85025; 87086; 93005; 93308; 93321; 93325; G0378; J1650; J3480; J2270; J7030

== ENCOUNTER 2020-11-03 12:16 | Emergency (ER) | payer MEDICARE, MEDICAID ==
[~2020-11-03] VITALS: Ht 157.5 cm; Wt 69.0 kg
[~2020-11-03 12:16] MED LIST changes: +ASCO500T9 PO; +LORA-247 PO; +LORA-59 PO; -LORA10TA62 PO; +METO-95 PO; +NIAC500T9 PO; +OXYC5TAB98 PO
--- NOTE | 2020-11-03 12:32 | NUR ---
PT BIB EMS FOR GLF THAT OCCURED AT HOME TODAY. PT C/O HEAD PAIN AND HAS HEMATOMA PRESENT TO LEFT FOREHEAD AND LEFT SIDE OF NASAL BONE. PT DENIES LOC. PER PT THE WHEEL OF HER WALKER DID NOT MOVE FORWARD AND SHE FELL WITH THE WALKER. NO BLEEDING FROM FOREHEAD ABRASION AT THIS TIME.
--- NOTE | 2020-11-03 12:41 | NUR ---
PT OFF THE FLOOR TO CT
--- NOTE | 2020-11-03 12:48 | NUR ---
PT BACK FROM CT
[2020-11-03 13:10] VITALS: BP 99/49
[2020-11-03] MEDS ORDERED: DIPH,PERTUSS(ACELL),TET VAC/PF 0.5 ML IM-VACC ONE ×2 (14:00→14:14)
--- NOTE | 2020-11-03 14:36 | NUR ---
Patient given discharge instructions and they have confirmed that they understand the instructions. Patient ambulatory with steady gait while using 4-wheel walker.
--- NOTE | 2020-11-03 14:37 | NUR ---
TAXI VOUCHER GIVEN TO PATIENT FOR SAFE RIDE HOME.
== END 2020-11-03 14:37 | disposition home or self-care (01) ==
LOC: ED 14:20
DX: S00.83XA Contusion of other part of head, initial encounter (principal); I10 Essential (primary) hypertension; E11.9 Type 2 diabetes mellitus without complications; W01.0XXA Fall on same level from slipping, tripping and stumbling without subsequent striking against object, initial encounter; Y93.89 Activity, other specified; Y92.009 Unspecified place in unspecified non-institutional (private) residence as the place of occurrence of the external cause; Y99.8 Other external cause status
CPT/HCPCS: 70450; 70486; 90471; 90715; 99285

== ENCOUNTER 2021-05-09 13:11 | Emergency (ER) | payer MEDICARE, MEDICAID ==
[~2021-05-09] VITALS: Ht 157.5 cm; Wt 65.0 kg
[~2021-05-09 13:11] MED LIST changes: +NIAC500C12 PO; -NIAC500C3 PO
[2021-05-09 13:22] VITALS: BP 132/59
[2021-05-09] MEDS ORDERED: PERMETHRIN CRM 5%, 60GM TP ONE (13:30)
--- NOTE | 2021-05-09 13:37 | NUR ---
pt biba from home for feeling dizzy for last couple days. pt states she gets meals on wheels on tuesdays, but she hasnt had anything to eat or drink in couple days. pt is covered in scrathings.. small bugs noted on pts clothing. hot car charger aware.
--- NOTE | 2021-05-09 13:38 | NUR ---
phleb at bs. given warm blankets. lunch tray ordered.
[2021-05-09 14:06] LABS: BASOPHILS % (AUTO) 1 % (0-1); EOSINOPHILS % (AUTO) 7 % (1-7); LYMPHOCYTES % (AUTO) 17 % (22-44); MEAN CORPUSCULAR HEMOGLOBIN 29.6 pg (27.0-34.8); MEAN CORPUSCULAR HGB CONC 33.7 g/dL (32.4-35.8); MEAN PLATELET VOLUME 8.1 fL (7.4-10.4); MONOCYTES % (AUTO) 13 % (2-9); NEUTROPHILS % (AUTO) 63 % (42-75); PLATELET COUNT 419 x10^3/uL (130-400); RED BLOOD COUNT 4.37 x10^6/uL (3.82-5.3); RED CELL DISTRIBUTION WIDTH 14.3 % (9.6-15.2)
[2021-05-09 14:17] LABS: ALBUMIN 3.1 g/dL (3.4-5.0); ANION GAP 6 mmol/L (5-15); CALCIUM 9.5 mg/dL (8.5-10.1); CHLORIDE 106 mmol/L (98-107); CREATININE 1.41 mg/dL (0.55-1.02)
--- NOTE | 2021-05-09 14:56 | NUR ---
REPORT RECEIVED FROM [facility], ASSUMING CARE OF PT AT THIS TIME.
--- NOTE | 2021-05-09 15:31 | NUR ---
dc instructions reviewed, pt verbalized understanding. ambulatory with steady gait to dc.
== END 2021-05-09 15:40 | disposition home or self-care (01) ==
LOC: ED 15:25
DX: E86.0 Dehydration (principal); R42 Dizziness and giddiness; I10 Essential (primary) hypertension; E11.65 Type 2 diabetes mellitus with hyperglycemia; E78.5 Hyperlipidemia, unspecified
CPT/HCPCS: 36415; 80048; 82040; 85025; 93005; 99284